=== PATIENT | male | born 1965 | race Caucasian/White ===

== ENCOUNTER 2017-07-28 18:24 | Emergency (ER) | payer OTHER ==
[2017-07-28 18:37] VITALS: BP 129/82
--- NOTE | 2017-07-28 18:57 | EDM.PDOC ---
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 He had some pain over the lateral aspect of the left ankle. He has been able to walk and weight bear on it, but the pain and swelling has gradually got worse over the day, hence here in the emergency room. No tingling or numbness in the foot. No weakness. No other injuries. Onset: Today Onset Date: 07/28/17 Onset Time: 08:00 Location: Reports: Lower Extremity, Left Quality: Reports: Ache Severity: Moderate Improves with: Reports: Rest Worsens with: Reports: Movement Associated Symptoms: Denies: Cough, Fever/Chills, Headaches, Nausea/Vomiting, Rash, Seizure, Shortness of Breath, Syncope, Weakness - Related Data Allergies Allergy/AdvReac Type Severity Reaction Status Date / Time No Known Allergies Allergy Verified 06/11/17 16:33 Home Meds: Home Meds Lisinopril [Lisinopril] 40 mg PO DAILY 07/28/17 [History] Social & Family History - Family History Family Medical History: Noncontributory - Tobacco Use Smoking Status *Q: Never Smoker - Caffeine Use Caffeine Use: Reports: Coffee, Soda, Tea Other Caffeine Use: 2 cups coffee/day - Alcohol Use Days Per Week of Alcohol Use: 3 Number of Drinks Per Day: 4 Total Drinks Per Week: 12 - Recreational Drug Use Recreational Drug Use: No ED ROS GENERAL - Review of Systems Review Of Systems: See Below Constitutional: Denies: Fever, Chills HEENT: Denies: Sinus Problem, Throat Pain Respiratory: Denies: Cough, Sputum Cardiovascular: Denies: Chest Pain, Syncope GI/Abdominal: Denies: Nausea, Vomiting Musculoskeletal: Reports: Joint Pain, Joint Swelling Skin: Reports: Bruising. Denies: Pruritis, Rash ED EXAM, GENERAL - Physical Exam Exam: See Below Exam Limited By: No Limitations General Appearance: Alert, WD/WN, No Apparent Distress Eye Exam: Bilateral Eye: EOMI, PERRL Ears: Normal External Exam, Normal Canal, Hearing Grossly Normal Ear Exam: Bilateral Ear: Auricle Normal, Canal Normal, TM normal Nose: Normal Inspection, Normal Mucosa, No Blood Throat/Mouth: Normal Inspection, Normal Lips, Normal Teeth, Normal Gums, Normal Oropharynx, Normal Voice, No Airway Compromise Head: Atraumatic, Normocephalic Neck: Normal Inspection, Supple, Non-Tender, Full Range of Motion Respiratory/Chest: No Respiratory Distress, Lungs Clear, Normal Breath Sounds, No Accessory Muscle Use, Chest Non-Tender Cardiovascular: Normal Peripheral Pulses, Regular Rate, Rhythm, No Edema, No Gallop, No JVD, No Murmur, No Rub Extremities: No Pedal Edema, Other (left foot: there is swelling over the lateral malleolus of the ankle. Good ROM. tender over the distal lateral malleolus and the talo-fibular ligament.) Neurological: Alert, Oriented, CN II-XII Intact, Normal Cognition, Normal Gait, Normal Reflexes, No Motor/Sensory Deficits Skin Exam: Warm, Intact Course - Vital Signs Text/Narrative:: Pt's Xray of left ankle is negative for fracture. Patient has Grade 2 ankle sprain of the talo-fibular ligament. Pt reassured. Merlin wrap applied. Advised cold compresses intermittently for 24 hrs, followed by heat and cold. Advised motrin 800mg 3 times daily for pain. elevate the extremity on and off.He might noticed some bruising that might spread around the ankle and foot. should heal without complication. I have placed him on sedentary work for next 1 wk. he should be okay to occasional weight bear for his daily ADLs only. Advised to followup in clinic on 08/05/17 for recheck. Pt understands and agrees with the plan. Last Recorded V/S: Last Vital Signs Temp 98.7 F 07/28/17 18:36 Pulse 70 07/28/17 18:36 Resp 12 07/28/17 18:36 BP 129/82 07/28/17 18:36 Pulse Ox 98 07/28/17 18:36 - Orders/Labs/Meds Orders: Active Orders 24 hr Category Date Time Status Ankle Min 3V Lt [CR] Stat Exams 07/28/17 18:51 Taken Departure - Departure Time of Disposition: 20:45 Disposition: Home, Self-Care 01 Condition: Good Clinical Impression: Left ankle sprain - Discharge Information Instructions: Ankle Sprain, [id number] Referrals: PCP,None [Primary Care Provider] - Forms: ED Department Discharge Additional Instructions: Take Motrin as needed for pain every 4-6 hours, keep LLE elevated and wrapped with merlin wrap, Follow up with primary MD if any problems. - Problem List & Annotations (1) Left ankle sprain SNOMED Code(s): 21948532 Code(s): S93.402A - SPRAIN OF UNSPECIFIED LIGAMENT OF LEFT ANKLE, INIT ENCNTR Status: Acute - Problem List Review Problem List Initiated/Reviewed/Updated: Yes - My Orders Last 24 Hours: My Active Orders 07/28/17 18:51 Ankle Min 3V Lt [CR] Stat - Assessment/Plan Last 24 Hours: My Active Orders 07/28/17 18:51 Ankle Min 3V Lt [CR] Stat Assessment:: Left ankle sprain Plan: Pt's Xray of left ankle is negative for fracture. Patient has Grade 2 ankle sprain of the talo-fibular ligament. Pt reassured. Merlin wrap applied. Advised cold compresses intermittently for 24 hrs, followed by heat and cold. Advised motrin 800mg 3 times daily for pain. Elevate the extremity on and off.He might noticed some bruising that might spread around the ankle and foot. should heal without complication. I have placed him on sedentary work for next 1 wk. he should be okay to occasional weight bear for his daily ADLs only. Advised to followup in clinic on 08/05/17 for recheck. Pt understands and agrees with the plan.
--- NOTE | 2017-07-29 09:02 | CR ---
DATE OF SERVICE: 07/28/17 CLINICAL DATA: ankle injury LEFT ANKLE: There is soft tissue swelling over the lateral malleolus and anterior to the ankle joint. There is a questionable faint lucency through the distal fibula on a single image, which may represent a nondisplaced fracture. The exam is otherwise negative. Follow-up imaging is recommended if clinically indicated. [id number] [facility]
== END 2017-07-28 21:00 | disposition home or self-care (01) ==
LOC: LB.ED 18:24
DX: S93.402A Sprain of unspecified ligament of left ankle, initial encounter (principal); X50.1XXA Overexertion from prolonged static or awkward postures, initial encounter
CPT/HCPCS: 73610-LT; 99283

== ENCOUNTER 2019-02-27 17:19 | Emergency (ER) | payer OTHER ==
--- NOTE | 2019-02-28 01:37 | EDM.PDOC ---
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 He did wash and apply pressure and come into emergency room. He is up to date on tetanus. 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 no other injuries. Onset: Today Onset Date: 02/27/19 Onset Time: 17:00 Location: Reports: Upper Extremity, Right Quality: Reports: Ache Severity: Mild Associated Symptoms: Denies: Confusion, Chest Pain, Cough, Diaphoresis, Fever/ Chills, Headaches, Nausea/Vomiting, Rash, Seizure, Shortness of Breath, Syncope , Weakness - Related Data Allergies Allergy/AdvReac Type Severity Reaction Status Date / Time No Known Allergies Allergy Verified 06/11/17 16:33 Home Meds: Home Meds Lisinopril 40 mg PO DAILY 07/28/17 [History] Social & Family History - Family History Family Medical History: Noncontributory - Caffeine Use Caffeine Use: Reports: Coffee, Soda, Tea Other Caffeine Use: 2 cups coffee/day ED ROS GENERAL - Review of Systems Review Of Systems: See Below Constitutional: Denies: Fever, Chills HEENT: Denies: Rhinitis, Throat Pain, Throat Swelling Respiratory: Denies: Shortness of Breath, Cough, Sputum Cardiovascular: Denies: Chest Pain, Lightheadedness GI/Abdominal: Denies: Abdominal Pain, Nausea, Vomiting Skin: Reports: Wound. Denies: Bruising, Pruritis, Rash ED EXAM, GENERAL - Physical Exam Exam: See Below Exam Limited By: No Limitations General Appearance: Alert, WD/WN, No Apparent Distress Eye Exam: Bilateral Eye: EOMI, PERRL Ears: Normal External Exam, Normal Canal, Hearing Grossly Normal, Normal TMs Ear Exam: Bilateral Ear: Auricle Normal, Canal Normal, TM normal Nose: Normal Inspection, Normal Mucosa, No Blood Throat/Mouth: Normal Inspection, Normal Lips, Normal Teeth, Normal Gums, Normal Oropharynx, Normal Voice, No Airway Compromise Head: Atraumatic, Normocephalic Neck: Normal Inspection, Supple, Non-Tender, Full Range of Motion Respiratory/Chest: No Respiratory Distress, Lungs Clear, Normal Breath Sounds, No Accessory Muscle Use, Chest Non-Tender Cardiovascular: Normal Peripheral Pulses, Regular Rate, Rhythm, No Edema, No Gallop, No JVD, No Murmur, No Rub Extremities: Normal Inspection, Normal Range of Motion Skin Exam: Warm, Intact, Other (right index finger: there is a 2 cm long curvilinear laceration over the MCP joint over the dorsal aspect. Wound is gapping and bleeding. no tendon injury. Good ROM of the finger.) ED GENERAL MEDICAL PROCEDURES - Laceration/Wound Repair Right Digit - 2nd (Index) Lac/wound length in cm: 2 Appearance: Linear Anesthetic Type: Local Local Anesthesia - Lidocaine (Xylocaine): 1% Plain Local Anesthetic Volume: 1cc Skin Prep: Providone-Iodine (Betadine) Closed with: Sutures Suture Size: 5-0 # of Sutures: 4 Suture Type: Interrupted, Other (ethilon) Sterile Dressing Applied: Provider Tetanus Status Addressed: Yes Complications: No Course - Vital Signs Text/Narrative:: Pt has sustained 2 cm laceration over right index finger. The wound was closed under septic precautions. He is up to date on tetanus. Simple dressing done. Advised elevation of the hand. Wound care and infection precautions discussed. Suture removal in 1 wk. Last Recorded V/S: Last Vital Signs Temp 97.9 F 02/27/19 17:25 Pulse 78 02/27/19 17:25 Resp 16 02/27/19 17:25 BP 140/94 H 02/27/19 17:25 Pulse Ox 99 02/27/19 17:25 Departure - Departure Time of Disposition: 18:00 Disposition: Home, Self-Care 01 Condition: Good Clinical Impression: Finger laceration - Discharge Information *PRESCRIPTION DRUG MONITORING PROGRAM REVIEWED*: Not Applicable *COPY OF PRESCRIPTION DRUG MONITORING REPORT IN PATIENT CHARLIE: Not Applicable Instructions: Laceration Care, Adult Referrals: PCP,None [Primary Care Provider] - Forms: ED Department Discharge Care Plan Goals: Return to clinic next Saturday for suture removal. Keep wound clean and dry for the next few days. May use an antibiotic ointment as needed. Keep arm elevated as much as possible to prevent the hand from throbbing. May use ice as needed for swelling, may use tylenol or Ibuprofen for pain. - Problem List & Annotations (1) Finger laceration SNOMED Code(s): 099006252 Code(s): S61.219A - LACERATION W/O FB OF UNSP FINGER W/O DAMAGE TO NAIL, INIT Status: Acute - Problem List Review Problem List Initiated/Reviewed/Updated: Yes - Assessment/Plan Assessment:: Laceration of right middle finger Plan: Pt has sustained 2 cm laceration over right index finger. The wound was closed under septic precautions. He is up to date on tetanus. Simple dressing done. Advised elevation of the hand. Wound care and infection precautions discussed. Suture removal in 1 wk.
== END 2019-02-27 18:11 | disposition home or self-care (01) ==
LOC: LB.ED 17:19
DX: S61.210A Laceration without foreign body of right index finger without damage to nail, initial encounter (principal); Z79.899 Other long term (current) drug therapy; W26.8XXA Contact with other sharp object(s), not elsewhere classified, initial encounter
CPT/HCPCS: 12001; 99282